=== PATIENT | female | born 1960 | race Caucasian/White ===

== ENCOUNTER 2021-06-04 00:10 | Emergency (ER) | payer OTHER, SELFPAY ==
--- NOTE | ~2021-06-04 | XR_ITS ---
EXAMINATION: XR knee RT 3V DATE: 06/04/2021 00:55 INDICATION: Right knee pain TECHNIQUE: Anteroposterior, 2 oblique, sunrise and crosstable lateral views of the right knee were ob tained COMPARISON: None. FINDINGS: Alignment is normal. No fracture. Tricompartmental osteoarthritis which is of at least moderate theresa rity although joint space narrowing can be underestimated on nonweightbearing imaging. Small right kn ee joint effusion without layering lipohemarthrosis. Soft tissues are unremarkable. IMPRESSION: 1. At least moderate severity tricompartmental osteoarthritis at the right knee with small joint effu kimi. No acute osseous abnormality. Reviewed, dictated and finalized at location A. IMPRESSION: 1. At least moderate severity tricompartmental osteoarthritis at the right knee with small joint effusion. No acute osseous abnormality.
--- NOTE | 2021-06-04 00:26 | ED.LOWEXIN ---
HPI - Extremity Injury (Lower) General Chief Complaint: Extremity Injury, Lower Stated Complaint: Pain behind right knee Time Seen by Provider: 06/04/21 00:27 Source: patient Mode of arrival: wheelchair Limitations: no limitations History of Present Illness HPI Narrative: 61-year-old female a history of arthritis status post left knee replacement, restless leg syndrome with chronic right knee stiffness and pain developed acute onset right knee swelling and pain. No history of trauma. MD complaint: other ( Acute right knee pain with swellin) Onset (ago): hour(s) ( 3 hours) Severity: moderate Severity scale (1-10): 5 Relieving factors: nothing Exacerbating factors: nothing Context: other ( no trauma) Associated symptoms: swelling Other symptoms: none Related Data Home Medications Medication Instructions Recorded Confirmed amlodipine 5 mg PO DAILY 06/04/21 06/04/21 aspirin [Adult Low Dose Aspirin] 81 mg PO DAILY 06/04/21 06/04/21 carisoprodol 350 mg PO DAILY 06/04/21 06/04/21 levothyroxine 75 mcg PO QAM 06/04/21 06/04/21 lisinopril-hydrochlorothiazide 1 tablet PO DAILY 06/04/21 06/04/21 rosuvastatin 10 mg PO DAILY 06/04/21 06/04/21 Allergies Allergy/AdvReac Type Severity Reaction Status Date / Time Penicillins Allergy Severe NAUSEA Verified 06/23/10 10:48 Sulfa (Sulfonamide Allergy Mild ITCHING/ABDI Verified 06/04/21 00:32 Antibiotics) H Review of Systems Review of Systems: All systems reviewed & are unremarkable except as noted in HPI and below Constitutional: Constitutional: Reports as per HPI ENT: Reports system reviewed and no additional complaints, except as documented Cardiovascular: Cardiovascular: Reports no additional cardiovascular complaints Respiratory: Respiratory: Reports no additional respiratory complaints Gastrointestinal: Gastrointestinal: Reports no additional gastrointestinal complaints Genitourinary: Genitourinary: Reports no additional female genitourinary complaints Musculoskeletal: Musculoskeletal: Reports other ( chronic joint pains.) Neurologic: Reports system reviewed and no additional complaints, except as documented Psychiatric: Psychiatric: Reports no additional psychiatric complaints Endocrine: Endocrine: Reports no additional endocrine complaints Hematologic/Lymphatic: Hematologic/Lymphatic: Reports no additional hematologic/lymphatic complaints Allergic/Immunologic: Allergic/Immunologic: Reports no additional allergic/immunologic complaints Exam Const: General: cooperative, healthy appearing, comfortable, no acute distress and well developed HENMT: Head: normal to inspection Ears: hearing grossly normal bilaterally General nose exam: Normal external nose present Face and sinus: normal facial exam Mouth: Yes Normal oral and palatal mucosa present Eyes: General: appearance normal, both eyes and all related structures Neck: Neck: normal visual inspection and full ROM Chest: Chest palpation & inspection: normal inspection of the chest Resp: Effort & Inspection: normal respiratory effort and able to speak in complete sentences Auscultation: clear to auscultation bilaterally Cardio: Jugular venous distension: no JVD Rate: regular rate Rhythm: regular rhythm Heart sounds: S1 normal heart sound present and S2 normal heart sound present GI: Inspection: normal to inspection and other ( no tenderness/rigidity /rebound.) Back/Spine/Pelvis: Back: no CVA tenderness Skin: General skin exam: normal color and no rashes or lesions noted Neuro: General: oriented to person, oriented to place, oriented to time and patient oriented x3 Extrem: Right lower extremity: knee ( R.kneeis tender and swollen. Decreased range of motion. Neg stress tests) Details: swelling, abnormal ROM and knee ligament exam normal Course Course Emergency Course: Degenerative arthritis of right knee right knee pain MDM - Extremity Injury (Lower) MDM Narrative Medical decision making narrat
[2021-06-04 00:33] VITALS: BP 144/74; PULSE 91; RESP 20; TEMP 36.9; O2SAT 100
[2021-06-04] MEDS: HYDROcodone/acetaminophen (*CRX) 5-325 MG TABLET 1 TAB PO (00:39)
[2021-06-04 01:50] VITALS: BP 138/77; PULSE 75; RESP 19; O2SAT 99
== END 2021-06-04 01:52 | disposition home or self-care (01) ==
PROVIDERS: Emergency Provider Internal Medicine Critical Care Medicine; PCP Family Medicine Adolescent Medicine
DX: M13.861 Other specified arthritis, right knee (principal); M25.561 Pain in right knee
CPT/HCPCS: 73562; 99282; 99283; A9270

== ENCOUNTER 2022-04-13 09:03 | Outpatient (RCR) | payer OTHER, SELFPAY ==
--- NOTE | 2022-04-13 10:09 | PTOPEVAL1 ---
Evaluation Information Assessment Status Evaluation Diagnosis R knee TKR Onset 03/18/22 Subjective Information Pt reports that she had her R knee TKR on 03/18/22. She had an allergic reaction to the adhesive after the surgery and had some blisters. She is doing better now. She reports that she is having some pain in the medial knee joint and R hip. She has been having trouble sleeping recently. She is still taking pain medications. She had home health PT recently. Wants to be able to walk again with her dogs. Reported Pain Level Pain Score 2: Self Report Assessment PT Clinical Summary Pt presents to physical therapy s/p R TKR on . She experiences R knee pain and demonstrates decreased range of motion, antalgic gait, decreased strength, and increased edema. These deficits limit her ability to walk and use stairs without pain or difficulty. She was provided with an HEP focused onimproving mobility, strength, and gait pattern within her tolerance. She will benefit from skilled PT to improve the aforementioned impairments, facilitate symptom relief, and return to functional and recreational activities. Plan of Care Interventions Electrical Stimulation,Gait Training,Hot Pack/Cold Pack,Intermittent Compression,Manual Therapy, Neuro Re-education,Patient/Caregiver Educati, Therapeutic Activities,Therapeutic Exercise PT Services Indicated Yes Treatment Frequency and 2x week for 10 visits Duration These treatments will address the objective and functional deficits as defined above. The patient will be advanced safely and appropriately in order for the patient to progress towards his/her prior level of function. Additional exercises will be introduced and as well as a comprehensive home exercise program upon discharge, if needed, ?to ensure carryover of functional gains achieved in the clinic. This treatment plan has been reviewed and agreement upon by the patient.
--- NOTE | 2022-05-14 14:03 | PTOPPROG ---
Assessment and note entered by Janell Albert DPT Evaluation Information Assessment Status Progress Diagnosis R knee TKR Onset 03/18/22 Subjective Information Pt reports she has a doctor appointment on Wednesday. She reports continued pain and limited range of motion since her initial evaluation. Assessment PT Clinical Summary Pt presents to physical therapy s/p R knee TKR on 03/18/2022. She has demonstrated significant improvements in strength, range of motion, and gait pattern, however, she is still limited in range of motion and functional strength. She will benefit from additional skilled PT to facilitate further symptom relief, improve the aforementioned impairments, and return to full functional and recreational activity participation. Plan of Care PT Services Indicated Yes Treatment Frequency and 2x week for 6 visits Duration These treatments will address the objective and functional deficits as defined above. The patient will be advanced safely and appropriately in order for the patient to progress towards his/her prior level of function. Additional exercises will be introduced and as well as a comprehensive home exercise program upon discharge, if needed, ?to ensure carryover of functional gains achieved in the clinic. This treatment plan has been reviewed and agreement upon by the patient.
--- NOTE | 2022-06-02 12:07 | PTOPDC ---
Assessment and note entered by Janell Albert DPT Evaluation Information Assessment Status Discharge Diagnosis R knee TKR Onset 03/18/22 Subjective Information Pt reports that her pain has improved a lot but she still has soreness in her knee. She has returned to 8 hour shifts at work. She has been busy with this and has returned to the gym and would like today to be her last session due to being busy. She has a follow-up with her MD on 07/06/22. Reported Pain Level Pain Score 4: Self Report Assessment PT Clinical Summary Pt presents to physical therapy with significant improvements in pain, range of motion, and strength since her initial session. She still demonstrates some decreased ROM in both flexion and extension and displays some increased fluid within her joint with palpation. Due to her functional improvements and increased tolerance to exercises, she is to be discharged from skilled PT as requested and was educated to continue her current mobility interventions as well as maintain her current level of activity. She is to follow- up with her MD for her scheduled appointment on and is to follow-up with us as needed should she have any questions.
== END 2022-06-02 15:19 | disposition home or self-care (01) ==
LOC: CHSPT 09:03
DX: M17.11 Unilateral primary osteoarthritis, right knee (principal)
CPT/HCPCS: 97110; 97161; 97530

== ENCOUNTER 2022-04-19 23:32 | Emergency (ER) | payer OTHER, SELFPAY ==
[2022-04-19 23:35] VITALS: BP 140/90; PULSE 90; RESP 20; TEMP 37.2; O2SAT 98
--- NOTE | 2022-04-19 23:50 | ED.EXTPRO ---
HPI - Extremity Problem General Chief complaint: Extremity Problem,Nontraumatic Stated complaint: LEG WOUND Time Seen by Provider: 04/19/22 23:44 History of Present Illness HPI Narrative: 62-year-old female patient 5 weeks post right knee replacement done in [facility] is here with complaints of pain in the right knee. The patient also had 1 episode of vomiting and mild diarrhea earlier today. The patient states that right after surgery she was on hydromorphone 4 mg and when she ran out of that she started taking oxycodone. She ran out of oxycodone about 3 days back and since then has had gradual worsening of pain as well as nausea and the apparently 1 emesis prior to arrival here tonight. She denies any fever or chills. She states that after the surgery she developed a local allergic reaction to adhesive tape and the entire knee became black. She has notice that the blackness is going away gradually and there is a linear kyle left in the scar area. She has also noticed some redness to the knee but denies any swelling. She denies any worsening of pain or difficulty ambulating. Related Data Home Medications Medication Instructions Recorded Confirmed aspirin 81 mg tablet 81 mg PO DAILY 06/04/21 04/19/22 acetaminophen 500 mg tablet (Pain 1,000 mg PO DAILY 11/03/21 04/19/22 Reliever (acetaminophen)) ascorbate calcium (vitamin C) 500 500 mg PO DAILY 11/03/21 04/19/22 mg tablet cholecalciferol (vitamin D3) 25 25 mcg PO DAILY 11/03/21 04/19/22 mcg (1,000 unit) capsule famotidine 20 mg tablet 20 mg PO QHS 11/03/21 04/19/22 Allergies Allergy/AdvReac Type Severity Reaction Status Date / Time Penicillins Allergy Severe NAUSEA Verified 11/03/21 08:48 Sulfa (Sulfonamide Allergy Mild ITCHING/ABDI Verified 11/03/21 08:48 Antibiotics) H Review of Systems Review of Systems: All systems reviewed & are unremarkable except as noted in HPI and below Constitutional: Constitutional: Reports no additional constitutional complaints Eyes: Eyes: Reports no additional eye complaints ENT: Reports system reviewed and no additional complaints, except as documented Cardiovascular: Cardiovascular: Reports no additional cardiovascular complaints Respiratory: Respiratory: Reports no additional respiratory complaints Gastrointestinal: Gastrointestinal: Reports no additional gastrointestinal complaints, Denies abdominal pain, Reports diarrhea, Reports nausea and Reports vomiting Genitourinary: Genitourinary: Reports no additional female genitourinary complaints Musculoskeletal: Musculoskeletal: Reports as per HPI Integumentary/Breasts: Skin/Breast: Reports system reviewed and no additional complaints, except as docu Neurologic: Reports system reviewed and no additional complaints, except as documented Psychiatric: Psychiatric: Reports no additional psychiatric complaints Endocrine: Endocrine: Reports no additional endocrine complaints Hematologic/Lymphatic: Hematologic/Lymphatic: Reports no additional hematologic/lymphatic complaints Allergic/Immunologic: Allergic/Immunologic: Reports no additional allergic/immunologic complaints PMFSH Past Medical History Medical History DISH (disseminated idiopathic skeletal hyperostosis) CTA 02/18 Surgical History Surgical History (Updated 04/20/22 @ 00:02 by Sylwia Faustin MD) History of arthroplasty of left knee 01/17 History of arthroplasty of right knee 03/2022 History of hysterectomy Family History Family History Mother Diabetes mellitus Heart disease Hypertension Hyperlipidemia Grandparent Diabetes mellitus Hypertension Hyperlipidemia Carcinoma of colon Sibling Diabetes mellitus Hypertension Hyperlipidemia Social History Social History Smoking status: Never smoker Second hand tobacco smoke
[2022-04-20] MEDS: ONDANSETRON HCL ODT 4 MG TABLET PO (00:02)
[2022-04-20] MEDS: HYDROmorphone HCL INJ (*CRX) 2 MG/ML VIAL IM (00:08)
[2022-04-20 00:17] LABS: Hematocrit 38.3 % (35.0-49.0); Hemoglobin 12.1 g/dL (12.0-15.0); Mean Corpuscular HGB Conc 31.6 g/dL (32.0-36.0); Mean Corpuscular Hemoglobin 27.7 pg (27.0-31.0); Mean Corpuscular Volume 87.6 fL (78.0-102.0); Mean Platelet Volume 10.1 fl (9.2-11.8); Platelet Count Result 366 K/mm3 (150-420); Red Blood Count 4.37 M/mm3 (4.20-5.40); Red Cell Distribution Width 13.1 % (11.6-14.4); White Blood Count 8.2 K/mm3 (4.8-10.8)
[2022-04-20 00:20] VITALS: BP 130/72; PULSE 70; RESP 20; O2SAT 96
[2022-04-20 00:31] LABS: Alanine Aminotransferase 9 U/L (14-59); Albumin Level 4.1 g/dL (3.4-5.0); Alkaline Phosphatase 134 U/L (46-116); Anion Gap 10 mmol/L (8-16); Aspartate Amino Transferase 14 U/L (15-37); Bilirubin,Total 0.6 mg/dL (0.00-1.00); Blood Urea Nitrogen 9 mg/dL (7-18); Calcium 9.7 mg/dL (8.5-10.1); Carbon Dioxide 25 mmol/L (21-32); Chloride 101 mmol/L (98-108); Estimated CRCL calculation 46 ml/min; Estimated Glomerular Filt Rate 57; Glucose 110 mg/dL (70-99); Osmolality Calculated 281 mOsm/kg (285-295); Potassium 3.1 mmol/L (3.5-5.1); Sodium 136 mmol/L (136-145); Total Protein 7.5 g/dL (6.4-8.2)
[2022-04-20] MEDS: POTASSIUM BICARBONATE 25 MEQ TABEF 50 MEQ PO (00:47)
[2022-04-20 00:58] LABS: Band Neutrophils Percent 0 % (0-6); Basophils Absolute Manual 0.08 K/mm3 (0-0.1); Basophils Percent Manual 1 % (0-1); Eosinophils Absolute Manual 0.65 K/mm3 (0.02-0.5); Eosinophils Percent Manual 8 % (1-6); Lymphocytes Absolute Manual 2.46 K/mm3 (1.1-4.5); Lymphocytes Percent Manual 30 % (18-44); Monocytes Absolute Manual 0.32 K/mm3 (0.1-0.90); Monocytes Percent Manual 4 % (3-9); Neutrophils Absolute Manual 4.67 K/mm3 (1.7-7.2); Neutrophils Percent Manual 57 % (46-73); Platelet Estimate Adequate (Adequate); Total Cells Counted 100
[2022-04-20 01:07] VITALS: BP 130/66; PULSE 78; RESP 18; TEMP 37; O2SAT 96
== END 2022-04-20 01:07 | disposition home or self-care (01) ==
PROVIDERS: Emergency Provider Emergency Medicine
DX: Z96.651 Presence of right artificial knee joint (principal); M25.561 Pain in right knee; F15.23 Other stimulant dependence with withdrawal
CPT/HCPCS: 36415; 80053; 85025; 96372; 99283; A9270; J1170